=== PATIENT | male | born 1960 | race Hispanic/Latino ===

== ENCOUNTER 2018-04-21 20:22 | Emergency (ER) | payer OTHER ==
[2018-04-21 20:51] VITALS: BP 145/95; PULSE 78; RESP 18; TEMP 98.6; O2SAT 100
--- NOTE | 2018-04-21 21:06 | ED PDOC ---
Lower Extremity Pain/Injury Time Seen by Provider: 04/21/18 20:53 Chief Complaint (Nursing): Lower Extremity Problem/Injury Chief Complaint (Provider): right knee and ankle pain History Per: Patient History/Exam Limitations: no limitations Onset/Duration Of Symptoms: Mins (prior to arrival) Current Symptoms Are (Timing): Still Present Additional Complaint(s): 58 year old male presents to the ED for evaluation of right knee and ankle pain s/p falling out of his chair and twisting his leg while working upstairs. Patient denies head injury or LOC. He has been able to walk and bear weight since time of fall. Patient took his evening naprosyn dose at 5:00 pm tonight but has not taken anything else for pain. PMD: Sukh Dimas Past Medical History Reviewed: Historical Data, Nursing Documentation, Vital Signs Vital Signs: Last Vital Signs Temp 98.6 F 04/21/18 20:49 Pulse 78 04/21/18 20:49 Resp 18 04/21/18 20:49 BP 145/95 H 04/21/18 20:49 Pulse Ox 100 04/21/18 20:49 - Medical History PMH: Arthritis, Diabetes, HTN - Surgical History Other surgeries: right knee meniscus surg 2014; multiple eye operations - Family History Family History: States: Unknown Family Hx - Living Arrangements Living Arrangements: With Family - Social History Current smoker - smoking cessation education provided: No Alcohol: None Drugs: Denies - Allergies Allergies/Adverse Reactions: Allergies Allergy/AdvReac Type Severity Reaction Status Date / Time azithromycin [From Zithromax] Allergy ANAPHYLAXIS Verified 04/21/18 20:49 erythromycin base Allergy ANAPHYLAXIS Verified 04/21/18 20:49 sulfamethoxazole Allergy RASH Verified 04/21/18 20:49 [From Bactrim] trimethoprim [From Bactrim] Allergy RASH Verified 04/21/18 20:49 Wells Criteria for PE - Wells Criteria for Pulmonary Embolism Clinical Signs and Symptoms of DVT: No P.E is #1 Diagnosis, or Equally Likely: No Heart Rate >100: No Immobilization at least 3 days;Surgery previous 4 weeks: No Previous, objectively diagnosed PE or DVT: No Hemoptysis: No Malignancy w/treatment within 6 months, or palliative: No Total Score: 0 Review of Systems ROS Statement: Except As Marked, All Systems Reviewed And Found Negative Musculoskeletal: Positive for: Other (right knee and ankle pain) Physical Exam - Reviewed Nursing Documentation Reviewed: Yes Vital Signs Reviewed: Yes - Physical Exam Appears: Positive for: Well, Non-toxic, No Acute Distress Head Exam: Positive for: ATRAUMATIC, NORMAL INSPECTION, NORMOCEPHALIC Skin: Positive for: Normal Color. Negative for: Rash Eye Exam: Positive for: Normal appearance Extremity: Positive for: Other (Mild tenderness to right knee, tib-fib and ankle region, full range of motion of right ankle and knee, no calf swelling or tenderness, normal distal sensation right lower extremity) Neurologic/Psych: Positive for: Alert, Oriented - ECG O2 Sat by Pulse Oximetry: 100 (RA) Pulse Ox Interpretation: Normal - Other Rad Right knee, tib/fib and ankle x-ray X-Ray: Interpreted by Me, Viewed By Me X-Ray Interpretation: no fx, no dis, bony fragment posterior ankle Medical Decision Making Medical Decision Making: Time: 2099 Impression: 58 year old male with right knee and ankle pain Plan: --Right knee XR --Right ankle XR --Ultram 50mg PO --Right tibia fibula XR Podiatry at bedside applied splint to right leg and patient was given crutches. Patient has tramadol and naprosyn at home for pain. He was instructed to follow up with Dr. Hager next week in his office. Scribe Attestation: Documented by Izabela Sainz, acting as a scribe for Susana Yi PA-C. Provider Scribe Attestation: All medical record entries made by the Scribe were at my direction and personally dictated by me. I have reviewed the chart and agree that the record accurately reflects my personal performance of the history, physical exam, medical decision making, and the department course for this patient. I have also personally directed, reviewed, and agree with the discharge instructions and disposition. Disposition - Clinical Impression Clinical Impression: Right knee sprain, Ankle sprain - Patient ED Disposition Is Patient to be Admitted: No Counseled Patient/Family Regarding: Studies Performed, Diagnosis, Need For Followup - Disposition Referrals: Rohit Hager DPM [Staff Provider] - Disposition: Routine/Home Disposition Time: 23:16 Condition: STABLE Additional Instructions: Ice, rest and elevate affected area. Take naprosyn and tramadol for pain as needed. Follow up next week with Dr. Hager. Instructions: Ankle Sprain (DC), Knee Sprain (DC), How to Use Crutches, Going Up and Down Curbs or Stairs With a Walker or Crutches Forms: [employer] ([place]), [facility] ED School/Work Excuse
--- NOTE | 2018-04-21 23:43 | CP.PCM.CON ---
History of Present Illness - History of Present Illness History of Present Illness: Podiatry consult notes for attending Dr. Rajan: 58 y/o M patient with PMH of HTN and Psoriatic arthritis seen and evaluated oin the ED for pain and swelling in his right ankle. 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 Patient states that he selt pain immediately in his ankle. he states that the pain is 6/10 on VAS scale. Patient states that he received tramadol for the pain which helped him. Patient states that he could bear weight on his right foot but with pain. patient states that his whole right leg from the knee down to the ankle got swollen. patient states that he has psoriatic arthritis since he was 19 years old. He states that he is following up with a slip cover estimator at [place] who prescribed him Rubén brace bilaterally. Patient states that he used to wear the braces all the times when he ambulates. Patient denies any tingling or numbness in his right LE but he states that he has some burning sensation in front of his right ankle. Patient denies any recent F/N/V/C or SOB. He denies any other pedal complaint at this time. PMH: HTN and Psoriatic arthritis. PSH: Right knee surgery 4 years ago and multiple eye surgeries. Allergies: Azithromycin, Erytheromycin base and Bactrim Social Hx: Denies smoking, ETOH or illicit drug use. Review of Systems - Review of Systems Review of Systems: As per HPI Past Patient History - Past Social History Alcohol: None Drugs: Denies - CARDIAC Hx Hypertension: Yes - ENDOCRINE/METABOLIC Hx Diabetes Mellitus Type 2: Yes (borderline) - MUSCULOSKELETAL/RHEUMATOLOGICAL Hx Arthritis: Yes - PSYCHIATRIC Hx Substance Use: No - SURGICAL HISTORY Hx Surgeries: Yes Hx Eye Surgery: Yes (X 5) - ANESTHESIA Hx Anesthesia: Yes Meds Allergies/Adverse Reactions: Allergies Allergy/AdvReac Type Severity Reaction Status Date / Time azithromycin [From Zithromax] Allergy ANAPHYLAXIS Verified 04/21/18 20:49 erythromycin base Allergy ANAPHYLAXIS Verified 04/21/18 20:49 sulfamethoxazole Allergy RASH Verified 04/21/18 20:49 [From Bactrim] trimethoprim [From Bactrim] Allergy RASH Verified 04/21/18 20:49 Physical Exam - Constitutional Appears: Well, Non-toxic, No Acute Distress - Head Exam Head Exam: ATRAUMATIC, NORMOCEPHALIC - Extremities Exam Additional comments: LE focused exam: Vasc: DP/PT 2/4 b/l. Cap refill < 3 sec in all digits. Temp gradient warm to cool from proximal to distal b/l. Non pitting edema extending from the right ankle up to the right knee. Neuro: Gross and protective sensations are intact. Derm: No open lesions. No clinical signs of active infection. MSK: Pain on palpating the right perimalleolar area Lateral > Medial. Pain with inversion and Eversion with both passive and active ROM Eversion>inversion. Muscle power intact 5/5 in all groups with pain at the invertor-evertor ROM. Ankle ROM WNL. - Neurological Exam Neurological exam: Alert, Oriented x3 - Psychiatric Exam Psychiatric exam: Normal Affect, Normal Mood Results - Vital Signs Recent Vital Signs: Last Vital Signs Temp 98.6 F 04/21/18 20:49 Pulse 78 04/21/18 20:49 Resp 18 04/21/18 20:49 BP 145/95 H 04/21/18 20:49 Pulse Ox 100 04/21/18 23:33 Assessment & Plan - Assessment and Plan (Free Text) Assessment: 58 Y/O M patient seen and evaluated at the ED for right ankle sprain. Plan: Patient seen and evaluated at the ED Plan discussed in details with attending dr. Rajan. Chart and vitals reviewed; Afebrile. Right ankle 3 views X-ray reviewed; Small chip fracture floating posteriorly behind the right ankle. Discussed with the patient the x-ray results. Patient educated the RICE protocol. Patient instructed to use tramadol for pain in case he has outstanding pain. Patient instructed to Stay NWB to the right LE and to ambulate using crutches. Modified Bray compression and posterior splint applied to the patient Right LE. Patient expressed verbal understanding. Patient to F/U at Dr. Rajan's office. - Date & Time Date: 04/21/18 Time: 23:48
--- NOTE | 2018-04-22 08:56 | RAD ---
Date of service: 04/21/2018 PROCEDURE: Right Ankle Radiographs. HISTORY: trauma COMPARISON: None FINDINGS: BONES: Bone alignment and mineralization are normal. There is no acute displaced fracture or bone destruction. JOINTS: Normal. No osteoarthritis. Ankle mortise maintained. Talar dome intact SOFT TISSUES: Normal. OTHER FINDINGS: None. IMPRESSION: No acute fracture or dislocation.
--- NOTE | 2018-04-22 08:57 | RAD ---
Date of service: 04/21/2018 PROCEDURE: Right Knee Radiographs. HISTORY: trauma COMPARISON: 06/01/2008. FINDINGS: BONES: Bone alignment and mineralization are normal. There is no acute displaced fracture or bone destruction. JOINTS: There is moderate tricompartmental degenerative osteoarthrosis with reduced joint spaces, marginal osteophytes and tibial spiking, worse in the media compartment. JOINT EFFUSION: There is a small suprapatellar joint effusion. OTHER FINDINGS: None. IMPRESSION: No acute fracture or dislocation.
--- NOTE | 2018-04-22 08:58 | RAD ---
Date of service: 04/21/2018 PROCEDURE: Radiographs of the right tibia and fibula. HISTORY: trauma COMPARISON: None available TECHNIQUE: Frontal and lateral views obtained. FINDINGS: BONES: Bone alignment and mineralization are normal. There is no acute displaced fracture or bone destruction. JOINT SPACES: Unremarkable. OTHER FINDINGS: None. IMPRESSION: No acute fracture or dislocation.
== END 2018-04-21 23:49 | disposition home or self-care (01) ==
LOC: H.ER 20:22
DX: S83.91XA Sprain of unspecified site of right knee, initial encounter (principal); S93.401A Sprain of unspecified ligament of right ankle, initial encounter; E11.9 Type 2 diabetes mellitus without complications; I10 Essential (primary) hypertension; Z88.1 Allergy status to other antibiotic agents; L40.50 Arthropathic psoriasis, unspecified; W07.XXXA Fall from chair, initial encounter